=== PATIENT | female | born 1945 | race Caucasian/White ===

== ENCOUNTER → 2016-08-28 07:43 | Outpatient (CLI) | payer MEDICARE, BC ==
[2009-11-13 07:24] VITALS: BMI 50.8
[2016-08-28 09:08] LABS: CREATININE - SERUM 2.1 mg/dL (0.6-1.3)
== END | disposition home or self-care (01) ==
LOC: D.CT 07:43
PROVIDERS: Family Medicine
DX: I65.23 Occlusion and stenosis of bilateral carotid arteries (principal)

== ENCOUNTER → 2016-11-20 09:47 | Outpatient (CLI) | payer MEDICARE, BC ==
[2009-11-13 07:24] VITALS: BMI 50.8
== END | disposition home or self-care (01) ==
LOC: D.RAD
DX: Z86.010 Personal history of colon polyps (principal); M25.512 Pain in left shoulder

== ENCOUNTER → 2016-12-09 15:37 | Outpatient (CLI) | payer MEDICARE, BC ==
[2009-11-13 07:24] VITALS: BMI 50.8
== END | disposition home or self-care (01) ==
LOC: D.CT 15:37
DX: K43.2 Incisional hernia without obstruction or gangrene (principal)

== ENCOUNTER → 2017-12-31 13:29 | Outpatient (CLI) | payer MEDICARE, BC ==
[2009-11-13 07:24] VITALS: BMI 50.8
== END | disposition home or self-care (01) ==
LOC: D.MRI 13:29
DX: M54.5 Low back pain (principal)